=== PATIENT | female | born 1955 | race Two or more races ===

== ENCOUNTER 2016-08-09 08:24 | Day surgery (SDC) | payer OTHER ==
[~2016-08-09 08:24] MED LIST: FENTANYL 250 MCG/5 ML AMP IV PRN; LACTATED RINGERS 1,000 ML IV SCH; MIDAZOLAM HCL 5 MG/5 ML VIAL IV PRN
[2016-08-09] MEDS ORDERED: IV START KIT ONE (08:27)
[2016-08-09] MEDS ORDERED: MIDAZOLAM HCL 5 MG/5 ML VIAL ONE (09:28)
[2016-08-09] MEDS ORDERED: FENTANYL 5 ML ONE (09:29)
[2016-08-09] MEDS ORDERED: LACTATED RINGERS 1,000 ML ONE (09:45)
== END 2016-08-09 10:59 | disposition home or self-care (01) ==
LOC: SDC 08:24
PROVIDERS: ATTEND Internal Medicine Gastroenterology
PROC: 0DJD8ZZ Inspection of Lower Intestinal Tract, Via Natural or Artificial Opening Endoscopic (ICD-10-PCS; principal; 2016-08-09)
DX: Z12.11 Encounter for screening for malignant neoplasm of colon (principal); Q43.8 Other specified congenital malformations of intestine; F32.9 Major depressive disorder, single episode, unspecified; M81.0 Age-related osteoporosis without current pathological fracture; M45.9 Ankylosing spondylitis of unspecified sites in spine
CPT/HCPCS: 45378; J3010; J2250; J7120 ×2